=== PATIENT | male | born 1985 | race Two or more races ===

== ENCOUNTER 2020-08-14 22:10 | Emergency (ER) | payer SELFPAY ==
[2020-08-14] MEDS ORDERED: NALOXONE HCL 0.4 MG/ML VIAL IM ONE (22:56)
[2020-08-14] MEDS ORDERED: NALOXONE HCL 0.4 MG/ML VIAL IVPUSH ONE (22:56)
[2020-08-14] MEDS ORDERED: SODIUM CHLORIDE 0.9% 500 ML INFUS.BAG IV ONE (22:56)
[2020-08-14 23:01] VITALS: BMI 38.0
[2020-08-14 23:12] VITALS: TEMP 97.2
[2020-08-14 23:19] LABS: BASO % 1.5 % (0-2.0); EOS % 3.2 % (0-4.5); HEMATOCRIT 44.8 % (35.4-49); HEMOGLOBIN 15.4 GM/dl (11.7-16.9); LYMPH % 48.9 % (8-40); MCH 29.9 pg (25.7-33.7); MCHC 34.3 g/dl (32.0-35.9); MEAN PLT VOLUME 8.7 fl (7.5-11.1); MONO % 9.4 % (3.8-10.2); PLATELET COUNT 317 K/MM3 (134-434); RBC 5.15 M/mm3 (4.00-5.60); RDW 13.2 % (11.9-15.9); WHITE BLOOD COUNT 17.3 K/mm3 (4.0-10.8)
[2020-08-14 23:35] LABS: ALBUMIN 4.7 g/dl (3.4-5.0); BILIRUBIN,TOTAL 0.9 mg/dl (0.2-1); CALCIUM 9.1 mg/dl (8.5-10); CREATININE 1.3 mg/dl (0.55-1.3); POTASSIUM 3.1 mmol/L (3.5-5.1); TOT PROT 7.3 g/dl (6.4-8.2)
[2020-08-14] MEDS ORDERED: PANTOPRAZOLE SODIUM 40 MG VIAL IVPUSH ONE (23:36)
[2020-08-14] MEDS ORDERED: PANTOPRAZOLE SODIUM 40 MG VIAL ONE (23:37)
[2020-08-14] MEDS ORDERED: MAGNESIUM SULF 50% (8.12 MEQ/2 ML-1 GM VIAL) IVPB ONE (23:41)
[2020-08-14] MEDS ORDERED: MAGNESIUM 1GM/D5W - 2 GM/200 ML IVPB IVPB ONE (23:44)
[2020-08-15 01:05] LABS: METHADONE, UR NEGATIVE ng/ml (CUTOFF=300); OPIATES, URI NEGATIVE ng/ml (CUTOFF=300); PHENCYCLIDINE,URINE NEGATIVE ng/ml (CUTOFF=25)
[2020-08-15 01:06] LABS: COCAINE, UR NEGATIVE ng/ml (CUTOFF=300); URINE BENZODIAZEPINES NEGATIVE ng/ml (CUTOFF=200)
[2020-08-15 01:29] LABS: URINE AMPHETAMINES NEGATIVE ng/ml (CUTOFF=500); URINE BARBITURATES NEGATIVE ng/ml (CUTOFF=200)
[2020-08-15] MEDS ORDERED: KCL 10 MEQ IVPB 10 MEQ/100 ML INFUS.BAG IVPB SCH (01:30)
[2020-08-15 01:51] VITALS: BP 134/105; PULSE 83
[2020-08-15] MEDS ORDERED: NALOXONE HCL 0.4 MG/ML VIAL IM ONE (02:05)
== END 2020-08-15 02:05 | disposition left against medical advice (07) ==
LOC: FER 22:10
PROC: 3E033GC Introduction of Other Therapeutic Substance into Peripheral Vein, Percutaneous Approach (ICD-10-PCS; principal; 2020-08-14)
PROC: 3E023GC Introduction of Other Therapeutic Substance into Muscle, Percutaneous Approach (ICD-10-PCS; principal; 2020-08-14)
PROC: 3E0337Z Introduction of Electrolytic and Water Balance Substance into Peripheral Vein, Percutaneous Approach (ICD-10-PCS; 2020-08-15)
PROC: 3E023GC Introduction of Other Therapeutic Substance into Muscle, Percutaneous Approach (ICD-10-PCS; 2020-08-15)
DX: R41.82 Altered mental status, unspecified (principal); J96.01 Acute respiratory failure with hypoxia; T50.904A Poisoning by unspecified drugs, medicaments and biological substances, undetermined, initial encounter; R55 Syncope and collapse; R11.10 Vomiting, unspecified
CPT/HCPCS: 36415; 70450-TC; 71045-TC-FY; 80053; 80307; 82550; 82553; 84484; 85025; 93005; 99285-25; C9803; U0003